=== PATIENT | female | born 1960 | race Caucasian/White ===

== ENCOUNTER → 2016-12-16 | Outpatient (CLI) | payer BC ==
[2016-12-16 14:48] LABS: Appearance,Urine Clear (Clear); Bacteria,Urine Rare /hpf; Bilirubin,Urine Negative (Negative); Glucose,Urine (UA) Negative (Negative); Ketones,Urine Negative (Negative); Leukocyte Esterase,Urine Negative (Negative); Nitrite,Urine Negative (Negative); PH, Urine 5.5 (5.0-8.0); Particle Count 385; Protein,Urine Negative (Negative); RBC,Urine 1 /hpf (0-5); Specific Gravity,Urine 1.009 (1.001-1.035); Squamous Epithelial Cell,Urine <1 /hpf (0-4); UA Billing (MACRO vs. MICRO) MICRO; Urobilinogen,Urine <2.0 mg/dL (<2.0); WBC,Urine <1 /hpf (0-5)
== END | disposition home or self-care (01) ==
LOC: LABPRL 13:26
PROVIDERS: ATTEND Obstetrics & Gynecology
DX: R35.0 Frequency of micturition (principal)
CPT/HCPCS: 81001; 87086

== ENCOUNTER → 2016-12-29 | Outpatient (CLI) | payer BC ==
--- NOTE | 2016-12-29 09:16 | US ---
EXAMINATION TYPE: US transvaginal DATE OF EXAM: 12/29/2016 8:44 AM COMPARISON: NONE CLINICAL HISTORY: Pelvic Pain, R10.2. irregular periods TECHNIQUE: Transvaginal (TV) Date of LMP: 12/20/2016 EXAM MEASUREMENTS: Uterus: 6.8 x 3.3 x 3.2cm Endometrial Stripe: 0.4m Right Ovary: 1.1 x 1.0 x 1.2 cm Left Ovary: 1.5 x 1.0 x 1.3 cm TECHNOLOGIST IMPRESSION: large body habitus 1. Uterus: Anteverted nabothian cyst 0.5 x 0.3 x 0.7 cm, fibroid anterior 1.3 x 1.0 x 1.3 cm, hete rogenous 2. Endometrium: wnl 3. Right Ovary: cyst 0.5 x 0.5 x 0.5 cm 4. Left Ovary: wnl 5. Bilateral Adnexa: wnl 6. Posterior cul-de-sac: wnl Grayscale, color Doppler imaging performed. Color flow noted to the ovaries. IMPRESSION: Fibroid uterus. Exam somewhat limited
== END | disposition home or self-care (01) ==
LOC: RADUSWWP 08:19
PROVIDERS: ATTEND Obstetrics & Gynecology
DX: D25.9 Leiomyoma of uterus, unspecified (principal)
CPT/HCPCS: 76830

== ENCOUNTER → 2017-01-19 | Outpatient (CLI) | payer BC ==
--- NOTE | 2017-01-19 14:59 | CONS ---
DATE OF CONSULTATION: PCP is Dr. Ford. A 56-year-old female patient referred to me for evaluation of sleep apnea. Note that the patient has been suffering from increased fatigue and tiredness for which no explanation has been established. The patient feels tired and somewhat sleepy and her current Brush Creek score is 10. She is currently retired. She goes to bed around 10:00 p.m., wakes up at 6:00 a.m. in the morning. Sometimes after waking up, she will go and take another 2 hour nap. It takes a few minutes to fall asleep. While asleep she has been told to snore. She is not sure if she stops breathing. She is a single mother and she does not have a bed partner. She denies waking up, choking or gasping for air. No restlessness in the lower extremities. She has an overbite, yet no reported grinding of the teeth. No heartburn at night. No alcoholism. PAST MEDICAL HISTORY: Depression for more than 25 years and maintained on Effexor with excellent control. PAST SURGICAL HISTORY: None. ALLERGIES: PENICILLIN. Outpatient medication list includes: 1. Effexor-XR 75 mg p.o. daily. 2. Zyrtec-D [id number]. 3. Xanax. SOCIAL HISTORY: Nonsmoker. No history of alcohol. No history of IV drugs. 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 FAMILY HISTORY: Negative for sleep apnea. REVIEW OF SYSTEMS: Twelve-point review of systems was done. No recent weight gain or weight loss. No substance abuse. No alcoholism. No heartburn. No anxiety or panic attacks. BP is 114/75, pulse 71, respirations 16, temperature 97.7, saturation 99% on room air. Weight is 181. Height is 60-1/2 inches. Neck size 15. BMI is 35. Brush Creek score is 10. GENERAL APPEARANCE: Calm, comfortable. HEENT: Malalignment of the upper and lower jaw with Mallampati class II. No goiter or neck masses. LUNGS: Clear to auscultation. HEART: Heart sounds are regular rate and rhythm normal S1, S2. No S3. No S4. No murmurs. ABDOMEN: Soft, nontender. No organomegaly. EXTREMITIES: No edema. No cyanosis or clubbing. IMPRESSION: 1. Excessive fatigue and sleepiness, currently under investigation. Brush Creek score is 10. Rule out to an underlying obstructive sleep apnea. 2. Snoring. 3. Overweight/obesity with a body mass index of 35.1. 4. Depression, treated with Effexor. PLAN: 1. Encourage weight loss. 2. Sleep in a sidewise body position. 3. Proceed with a screening polysomnogram to see if there is any significant obstructive sleep apnea. 4. It was noted that the patient has overbite and an oral appliance may be a good option for this patient if mild to moderate degree of sleep apnea is demonstrated. Alternatively CPAP therapy can be used for severe cases. All these options were discussed with her. Will proceed with a screening polysomnogram and make further recommendations based on the results.
== END | disposition home or self-care (01) ==
LOC: SLEEP 10:18
PROVIDERS: ATTEND Internal Medicine Critical Care Medicine
DX: R06.83 Snoring (principal); E66.3 Overweight; E66.9 Obesity, unspecified; Z68.35 Body mass index [BMI] 35.0-35.9, adult; F32.9 Major depressive disorder, single episode, unspecified; Z79.899 Other long term (current) drug therapy; Z88.0 Allergy status to penicillin
CPT/HCPCS: 99211

== ENCOUNTER → 2017-04-12 | Outpatient (CLI) | payer BC ==
--- NOTE | 2017-04-12 16:35 | EST ---
DATE OF SERVICE: 04/12/2017 AGE: 56Y SEX: F HT: 62 WT: 181 lbs. Protocol Sylvester: Other: Stage: 2 Dur. of Exercise: 7:00 *Heart Rate Blood Pressure *Rest: 92 Rest: 117/71 * *Max. Achieved: 154 Maximum BP: 143/73 85% PMHR: 140 100% PMHR: 165 *METS: 8.5 INDICATIONS: MEDICATIONS: Exercised for a total period of 7 minutes. A peak heart rate of 143 was achieved. Maximum blood pressure of 141/62 mmHg was noted. Resting EKG shows normal sinus rhythm with normal [place] interval and QRS duration and normal ST-T waves. No ST segment depression suggestive of ischemia is noted. No complaint during the test. FINAL IMPRESSION: This exercise test is not suggestive of ischemia. Patient's exercise tolerance is normal. The patient did not complain of any anginal pain during the test.
== END | disposition home or self-care (01) ==
LOC: RADNMMAIN 11:29
PROVIDERS: ATTEND Family Medicine
DX: R94.31 Abnormal electrocardiogram [ECG] [EKG] (principal)
CPT/HCPCS: 93017

== ENCOUNTER → 2021-12-10 | Outpatient (CLI) | payer BC ==
[2021-12-10 18:57] LABS: T4, Free (Free Thyroxine) 1.07 ng/dL (0.800-1.800)
== END | disposition home or self-care (01) ==
LOC: LABWHC1 12:22
PROVIDERS: ATTEND Family Medicine
DX: M85.9 Disorder of bone density and structure, unspecified (principal); E66.09 Other obesity due to excess calories; E03.8 Other specified hypothyroidism
CPT/HCPCS: 36415; 82306; 83036; 84439; 84443

== ENCOUNTER → 2021-12-24 | Outpatient (CLI) | payer BC ==
--- NOTE | 2021-12-24 13:53 | CONS ---
CONSULTATION DATE OF SERVICE: 12/24/2021 61-year-old lady has [facility] for snoring and significant excessive daytime sleepiness. HISTORY OF PRESENT ILLNESS SLEEP-WAKE EVALUATION: The patient had a home sleep apnea test in 2017. At that time apnea-hypopnea index was 5.1, and she did not have any treatment. Positive history of symptoms of restless legs. SLEEP SCHEDULE: Presently, her sleep schedule from 11:30 pm until 6:30 a.m. on weekdays and from 0:50 am until 9 a.m. on weekends. FALLING ASLEEP: No problems with falling asleep, although she has TV set in bedroom. DURING SLEEP: She usually sleeps on the stomach position. She wakes up from sleep 2 times with one episode of nocturia. No history of hypnagogic hallucinations, sleep paralysis or cataplexy. DURING THE DAY/SLEEP WAKE EVALUATION: During the day she feels significant sleepiness. Lester Sleepiness Scale is in very high range of 15. She may take 2 naps during the day. She drinks up to 2 caffeinated beverages during the day. PAST MEDICAL HISTORY: Positive for depression, anxiety, arthritis, pre diabetes. PAST SURGICAL HISTORY: Cholecystectomy. MEDICATIONS: Prozac 30 mg once a day, levothyroxine 75 mcg once a day, Zyrtec 5 mg on p.r.n. basis and Xanax 25 mg on p.r.n. basis. SOCIAL HISTORY: Negative for smoking or using alcohol. FAMILY HISTORY: Hypertension, heart problems, stroke, snoring, sleep apnea. REVIEW OF SYSTEMS: Snoring, multiple awakenings from sleep, sleepiness during the day. PHYSICAL EXAMINATION: GENERAL: lady without distress. BP 110/74, HR 108, RR 16, height 5 feet and 1/3 inches, weight 177.8 pounds, body mass index 34.2, temperature 97.1, oxygen saturation at room air 98%. Oropharynx: Big uvula. Mallampati around 2. NECK is 16 inches in circumference. Neck: Supple, no JVD. Thyroid is not palpable. LUNGS: Clear to percussion and to auscultation. Good air exchange. No wheezing or rhonchi. HEART: S1, S2 regular. No murmurs, gallops, or rubs. ABDOMEN: Obese. Soft and nontender. Bowel sounds are present. No organomegaly appreciated. EXTREMITIES: No clubbing or cyanosis. INSPECTORS AND REGULATORY OFFICERS: Awake, alert, and oriented X3. Cranial nerves 2 to 7 intact. There is no fasciculation or atrophy. noted. No focal deficits observed. IMPRESSION: 1. Snoring, awakenings from sleep. Big neck, 16 inches in circumference, significant excessive daytime sleepiness, obstructive sleep apnea-hypopnea syndrome. 2. Significant excessive daytime sleepiness. Lester Sleepiness Scale is 15. Differential diagnosis should include hypersomnia. 3. Obesity, BMI 34.2. 4. History of restless leg symptoms. 5. Hypothyroidism. 6. History of Herb's thyroiditis. 7. Depression. 8. Anxiety. 9. History of neck arthritis. 10.Pre diabetes. 11.Status post cholecystectomy. PLAN: 1. Home sleep apnea test for evaluation of patient breathing during sleep. 2. If sleep study will be negative for obstructive sleep apnea-hypopnea syndrome, polysomnogram with following multiple sleep latency test. 3. Preferable position during sleep on the side. 4. No driving if patient feels any sleepiness. 5. I will see patient for follow up visit to explain results of testing and following plan. Thank you very much for allowing me to participate in management of your patient. Sincerely, Michele Austin MD, PhD, FAASM Diplomat of [place] [employer] Sleep Medicine Board of [place] [employer] Manager of [facility] [place] MMODL / FREEDOMN: [id number] /
== END ==
LOC: SLEEP 11:55
PROVIDERS: ATTEND Internal Medicine
DX: G47.33 Obstructive sleep apnea (adult) (pediatric) (principal); E66.9 Obesity, unspecified; G25.81 Restless legs syndrome; E03.9 Hypothyroidism, unspecified; F32.A Depression, unspecified; R73.03 Prediabetes; F41.9 Anxiety disorder, unspecified; Z87.39 Personal history of other diseases of the musculoskeletal system and connective tissue; Z90.49 Acquired absence of other specified parts of digestive tract; Z86.39 Personal history of other endocrine, nutritional and metabolic disease; Z68.34 Body mass index [BMI] 34.0-34.9, adult; Z91.041 Radiographic dye allergy status; Z88.0 Allergy status to penicillin
CPT/HCPCS: 99211

== ENCOUNTER → 2022-04-23 | Outpatient (CLI) | payer BC ==
--- NOTE | 2022-04-23 10:33 | XR ---
EXAMINATION TYPE: XR calcaneus 2V LT DATE OF EXAM: 04/23/2022 COMPARISON: None HISTORY: Foot pain TECHNIQUE: 2 view left calcaneus FINDINGS: No acute fracture or dislocation is evident. Plantar calcaneal heel spur is present. Soft t issues appear normal. Follow up exams can be performed 7-10 days from acute trauma for continued pain. IMPRESSION: 1. Tiny plantar calcaneal heel spur.
== END | disposition home or self-care (01) ==
LOC: RADXRMAIN 09:51
PROVIDERS: ATTEND Family Medicine
DX: M77.32 Calcaneal spur, left foot (principal)

== ENCOUNTER → 2022-11-27 | Outpatient (CLI) | payer BC ==
--- NOTE | 2022-11-30 08:36 | MM ---
Reason for Exam: Screening (asymptomatic). Last mammogram was performed 1 year(s) and 5 month(s) ago. Patient History: Menarche at age 14. First Full-Term at age 31. Late child-bearing (after 30). Postmenopausal. Risk Values: Phyllis 5 year model risk: 2.0%. NCI Lifetime model risk: 9.7%. Prior Study Comparison: 12/30/2006 Screening Mammogram, [facility]. 04/19/2008 Bilateral Screening Mammogram, [facility] 12/23/2009 Bilateral Screening Mammogram, [facility]. Tissue Density: There are scattered fibroglandular densities. Findings: Analyzed By CAD. There is no suspicious group of microcalcifications or new suspicious mass in either breast. Stable chronic nodularity within the right breast. Overall Assessment: Benign, BI-RAD 2 Management: Screening Mammogram of both breasts in 1 year. A clinical breast exam by your physician is recommended on an annual basis and results should be correlated with mammographic findings. Electronically signed and approved by: Aram Fonseca D.O.
== END | disposition home or self-care (01) ==
LOC: RADMAMWWP 09:46
PROVIDERS: ATTEND Obstetrics & Gynecology
DX: Z12.31 Encounter for screening mammogram for malignant neoplasm of breast (principal); Z78.0 Asymptomatic menopausal state
CPT/HCPCS: 77063; 77067

== ENCOUNTER → 2023-12-06 | Outpatient (CLI) | payer BC ==
--- NOTE | 2023-12-07 08:43 | MM ---
Reason for Exam: Screening (asymptomatic). Last mammogram was performed 1 year(s) and 1 month(s) ago. Patient History: Menarche at age 14. First Full-Term at age 31. Late child-bearing (after 30). Postmenopausal. Risk Values: Phyllis 5 year model risk: 2.1%. NCI Lifetime model risk: 9.4%. Prior Study Comparison: 04/04/2020 Bilateral MG 3D screening mammo w/cad, [facility]. 06/27/2021 Bilateral MG 3D screening mammo w/cad, [facility]. 11/27/2022 Bilateral MG 3D screening mammo w/cad, [facility]. Tissue Density: There are scattered fibroglandular densities. Findings: Analyzed By CAD. There is no suspicious group of microcalcifications or new suspicious mass in either breast. Chronic nodularity right breast. Benign calcifications. Overall Assessment: Benign, BI-RAD 2 Management: Screening Mammogram of both breasts in 1 year. . Patient should continue monthly self-breast exams. A clinical breast exam by your physician is recommended on an annual basis. This exam should not preclude additional follow-up of suspicious palpable abnormalities. Note on Phyllis scores and lifetime risk: 1. A Phyllis score greater than 3% is considered moderate risk. If this is the case, consider specialist referral to assess eligibility for a risk reducing agent. 2. If overall lifetime risk for the development of breast cancer is 20% or higher, the patient may qualify for future screening with alternating mammogram and breast MRI. Electronically signed and approved by: Zion Crarero M.D. Radiologis
--- NOTE | 2023-12-07 12:20 | BD ---
EXAMINATION TYPE: Axial Bone Density DATE OF EXAM: 12/06/2023 CLINICAL HISTORY: 63 years old Female. ICD-10 CODE: M85.88 OT DISRD OF BONE DENSITY Height: 60" Weight: 169.8 FRAX RISK QUESTIONS: Alcohol (3 or more units per day): No Family History (Parent hip fracture): No Glucocorticoids (More than 3mos): No (Ex: prednisone, prednisolone, methylprednisolone, dexamethasone, and hydrocortisone). History of Fracture in Adulthood: No Secondary Osteoporosis: 1. Type 1 Diabetes: No 2. Hyperthyroidism: No 3. Menopause before 45: No 4. Malnutrition: No 5. Chronic liver disease: No Rheumatoid Arthritis: No Current Tobacco Use: No RISK FACTORS HISTORY OF: Hip Fracture (Right/Left): No Spine Fracture: No History of Wrist Fracture: No Surgery to Spine/Hip(right/left)/Wrist (right/left): No MEDICATIONS: Thyroid Medications: Yes Which medication: Levothyroxine How Lon years Osteoporosis Medications: No EXAM MEASUREMENTS: Bone mineral densitometry was performed using the [employer] System. Bone mineral density as measured about the Lumbar spine is: ----- L1-L4(G/cm2): 0.844 T Score Values are as follows: ----- L1: -2.6 ----- L2: -3.5 ----- L3: -2.7 ----- L4: -2.6 ----- L1-L4: -2.8 Z Score Values are as follows: ----- L1: -1.6 ----- L2: -2.5 ----- L3: -1.7 ----- L4: -1.6 ----- L1-L4: -1.8 Baseline @[facility] Bone mineral density about the R hip (g/cm2): 0.812 Bone mineral density about the L hip (g/cm2): 0.767 T Score values are as follows: -----R Neck: -2.5 -----L Neck: -2.8 -----R Total: -1.6 -----L Total: -1.9 Z Score values are as follows: -----R Neck: -1.4 -----L Neck: -1.8 -----R Total: -0.8 -----L Total: -1.2 Baseline @[facility] FRAX%s: The graph provided illustrates a 13.6% chance for a major osteoporotic fx and a 3.3% chance f or the hips probability for fx in 10 years time. IMPRESSION: Osteoporosis (T Score less than -2.5). There is increased fracture risk and therapy is usually indicated based on age. Re-Screen 1-2 years. NOTE: T-SCORE=SD OF THE YOUNG ADULT MEAN.
== END | disposition home or self-care (01) ==
LOC: RADMAMWWP 09:51
PROVIDERS: ATTEND Obstetrics & Gynecology
DX: Z12.31 Encounter for screening mammogram for malignant neoplasm of breast (principal); M81.0 Age-related osteoporosis without current pathological fracture; M85.89 Other specified disorders of bone density and structure, multiple sites; Z78.0 Asymptomatic menopausal state
CPT/HCPCS: 77063; 77067; 77080

== ENCOUNTER 2024-11-24 08:46 | Day surgery (SDC) | payer BC ==
[2024-11-22 10:10] VITALS: BMI 31.1
[2024-11-24 09:18] VITALS: TEMP 97.3
[2024-11-24] MEDS: LACTATED RINGERS 1,000 ML IV SCH (09:26)
[2024-11-24] MEDS: IV FLUID CONTINUATION 1,000 ML IV ONE (09:28)
[2024-11-24] MEDS ORDERED: LIDOCAINE 1% INJ 10MG/ML (20 ML MDV) ONE (09:28)
[2024-11-24] MEDS ORDERED: PROPOFOL 10 MG/ML 20 ML VIAL IV ONE (09:28)
--- NOTE | 2024-11-24 09:48 | P.PCN ---
Date of Procedure: 11/24/24 Procedure(s) Performed: BRIEF HISTORY: Patient is a 64-year-old pleasant white female scheduled for an elective colonoscopy as a part of screening for colon cancer. PROCEDURE PERFORMED: Colonoscopy with snare polypectomy. PREOPERATIVE DIAGNOSIS: Screening for colon cancer. IV sedation per Anesthesia. PROCEDURE: After informed consent was obtained, the patient, was brought into the endoscopy unit. IV sedation was administered by Anesthesia under continuous monitoring. Digital rectal examination was normal. Initially the Olympus CF-160 flexible video colonoscope was then inserted in the rectum, gradually advanced into the cecum without any difficulty. Careful examination was performed as the scope was gradually being withdrawn. Ileocecal valve and the appendiceal orifice were visualized and appeared normal. Prep was excellent. Mucosa of the cecum, ascending colon, transverse colon, descending colon, appeared normal. The sigmoid colon there was a 5 mm polyp that was removed by cold snare polypectomy. Rest of the sigmoid colon, and rectum appeared normal. Retroflexion was performed in the rectum and no lesions were seen. The patient tolerated the procedure well. IMPRESSION: 5 mm sigmoid colon polyp status post cold snare polypectomy Rest of the colon appeared normal RECOMMENDATIONS: Findings of this examination were discussed with the patient as well as the family.. She was advised to follow-up with the biopsy results. If the biopsy reveals adenoma she can have repeat colonoscopy in 5 years.
[2024-11-24 10:10] VITALS: BP 102/66; PULSE 69; RESP 15
== END 2024-11-24 10:32 | disposition home or self-care (01) ==
LOC: ORWHC2ENDO 08:46
PROVIDERS: ATTEND Internal Medicine Gastroenterology
DX: Z12.11 Encounter for screening for malignant neoplasm of colon (principal); D12.5 Benign neoplasm of sigmoid colon
CPT/HCPCS: 45385; J2003; J2704; 88305

== ENCOUNTER 2025-04-30 15:19 | Emergency (ER) | payer BC ==
--- NOTE | 2025-04-30 15:38 | ED ---
Dizziness HPI - General Source: patient, RN notes reviewed Mode of arrival: ambulatory Limitations: no limitations <Lynn Crowley - Last Filed: 04/30/25 15:36> - General Source: patient, RN notes reviewed Limitations: no limitations <Moises Monreal - Last Filed: 04/30/25 21:56> - General Chief Complaint: Dizziness Stated Complaint: Weakness/Dizzy/Nausea Time Seen by Provider: 04/30/25 15:36 - History of Present Illness Initial Comments: Quick note: 64-year-old female presented the ER for evaluation of dizziness. Patient states throughout the day today she has been experiencing dizziness while walking, standing or with head motions. She states with sitting still she has no symptoms. She denies a history of vertigo or prior episodes. Denies headache, chest pain or shortness of breath. (Lynn Crowley) Patient is a 64-year-old female present to the emergency department with concerns with dizziness. Onset was around noon. Sudden onset. Patient has symptoms when she sits up or has head movement. Symptoms improve with resting. No history of similar symptoms previously. No speech problems or confusion. No extremity weakness. (Moises Monreal) - Related Data Home Medications Medication Instructions Recorded Confirmed ALPRAZolam [Xanax] 0.25 mg PO BID PRN 12/11/21 11/24/24 Albuterol Sulfate [Proair 1 puff INHALATION RT-Q6H PRN 12/11/21 11/24/24 Respiclick] Calcium Carbonate [Calcium] 400 mg PO DAILY 12/11/21 11/24/24 Cetirizine HCl/Pseudoephedrine 0.5 tab PO DAILY PRN 12/11/21 11/24/24 [Zyrtec-D Tablet] Cholecalciferol [Vitamin D3 (125 375 mcg PO DAILY 12/11/21 11/24/24 Mcg = 5000 Iu)] [place] 520 mg PO DAILY 12/11/21 11/24/24 FLUoxetine HCL [PROzac] 10 mg PO DAILY 12/11/21 11/24/24 FLUoxetine HCL [PROzac] 20 mg PO DAILY 12/11/21 11/24/24 L.acidoph,Paracasei, B.lactis 1 cap PO DAILY 12/11/21 11/24/24 [Probiotic] Levothyroxine Sodium [Synthroid] 88 mcg PO DAILY 12/11/21 11/24/24 Petros-3 Fatty Acids [Petros-3] 1,000 mg PO DAILY 12/11/21 11/24/24 Turmeric Root Extract [Turmeric] 500 mg PO DAILY 12/11/21 11/24/24 traZODone HCL [Desyrel] 25 mg PO HS 11/22/24 11/24/24 Allergies Allergy/AdvReac Type Severity Reaction Status Date / Time Iodinated Contrast Media Allergy Unknown Verified 04/30/25 15:28 Penicillins Allergy Unknown Verified 04/30/25 15:28 Review of Systems ROS Other: All systems not noted in ROS Statement are negative. <Lynn Crowley - Last Filed: 04/30/25 15:36> ROS Other: All systems not noted in ROS Statement are negative. Constitutional: Denies: fever Eyes: Denies: eye pain ENT: Denies: ear pain Respiratory: Denies: cough Cardiovascular: Denies: chest pain Endocrine: Denies: fatigue Gastrointestinal: Denies: abdominal pain Neurological: Reports: vertigo. Denies: headache <Moises Monreal - Last Filed: 04/30/25 21:56> ROS Statement: Those systems with pertinent positive or pertinent negative responses have been documented in the HPI. Past Medical History Past Medical History: Thyroid Disorder History of Any Multi-Drug Resistant Organisms: None Reported Past Surgical History: Cholecystectomy, Orthopedic Surgery Additional Past Surgical History / Comment(s): colonoscopy, right shoulder repair Past Anesthesia/Blood Transfusion Reactions: No Reported Reaction Additional Past Anesthesia/Blood Transfusion Reaction / Comment(s): no blood transfusion Past Psychological History: Anxiety, Depression Smoking Status: Never smoker <Lynn Crowley - Last Filed: 04/30/25 15:36> General Exam Limitations: no limitations <Lynn Crowley - Last Filed: 04/30/25 15:36> Limitations: no limitations General appearance: alert, in no apparent distress Head exam: Present: normocephalic Eye exam: Present: normal appearance, PERRL, EOMI. Absent: nystagmus ENT exam: Present: normal oropharynx Respiratory exam: Present: normal lung sounds bilaterally Cardiovascular Exam: Present: regular rate, normal rhythm GI/Abdominal exam: Present: soft. Absent: tenderness Extremities exam: Present: normal inspection. Absent: pedal edema, calf tenderness Neurological exam: Present: alert, oriented X3, CN II-XII intact. Absent: motor sensory deficit Expanded Neurological exam: Present: protecting the airway Speech: Present: fluid speech Cranial nerves: EOM's Intact: Normal, Facial Sensation: Normal Cerebellar function: Finger to Nose: Normal Sensory exam: Upper Extremity Light Touch: Normal, Lower Extremity Light Touch: Normal Motor strength exam: RUE: 5, LUE: 5, RLE: 5, LLE: 5 Eye Response: (4) open spontaneously Motor Response: (6) obeys commands Verbal Response: (5) oriented Psychiatric exam: Present: normal affect, normal mood Skin exam: Present: normal color <Moiess Monreal - Last Filed: 04/30/25 21:56> - General Exam Comments Initial Comments: Visual Physical Exam Vital signs reviewed General: Well-appearing, nontoxic, no acute distress. Head: Normocephalic, atraumatic Eyes: PERRLA, EOMI ENT: Airway patent Chest: Nonlabored breathing Skin: No visual rash, normal skin tone Neuro: Alert and oriented 3 Musculoskeletal: No gross abnormalities (Lynn Crowley) Course Vital Signs 04/30/25 04/30/25 15:25 21:01 Temperature 97.6 F Pulse Rate 72 72 Respiratory 16 18 Rate Blood Pressure 125/77 119/81 O2 Sat by Pulse 98 98 Oximetry Medical Decision Making <Lynn Crowley - Last Filed: 04/30/25 15:36> - Lab Data Result diagrams: 04/30/25 17:05 04/30/25 17:05 <Moises Monreal - Last Filed: 04/30/25 21:56> - Medical Decision Making I performed the quick note portion of this chart. Electronically signed by Lynn Crowley PA-C (Lynn Crowley) Was pt. sent in by a medical professional or institution (RASHI Atkins, EMERGENCY MEDICINE PHYSICIAN ASSISTANT, urgent care, hospital, or skilled nursing...) When possible be specific @ -No Did you speak to anyone other than the patient for history (EMS, parent, family, police, friend...)? What history was obtained from this source @ -No Did you review nursing and triage notes (agree or disagree)? Why? @ -I reviewed and agree with nursing and triage notes Were old charts reviewed (outside hosp., previous admission, EMS record, old EK G, old radiological studies, urgent care reports/EKG's, skilled nursing records)? Report findings @ -No old charts were reviewed Differential Diagnosis (chest pain, altered mental status, abdominal pain women, abdominal pain men, vaginal bleeding, weakness, fever, dyspnea, syncope, headache, dizziness, GI bleed, back pain, seizure, CVA, palpatations, mental health, musculoskeletal)? @ -Differential Dizziness: Benign paroxysmal positional Vertigo, Meniere's disease, otitis media, acoustic neuroma, vertebrobasilar insufficiency, cerebellar stroke, encephalitis, hypovolemic, arrhythmia, coronary artery syndrome, anemia, this is not meant to be an all-inclusive list EKG interpreted by me (3pts min.). @ -As above X-rays interpreted by me (1pt min.). @ -None done CT interpreted by me (1pt min.). @ -CT scan of the brain does not reveal acute abnormality U/S interpreted by me (1pt. min.). @ -None done What testing was considered but not performed or refused? (CT, X-rays, U/S, labs)? Why? @ -None What meds were considered but not given or refused? Why? @ -None Did you discuss the management of the patient with other professionals (professionals i.e. , PA, EMERGENCY MEDICINE PHYSICIAN ASSISTANT, lab, RT, psych nurse, social sciences professor, building and construction manager, teacher, operational intelligence officer, mattress spring encaser)? Give summary @ -No Was smoking cessation discussed for >3mins.? @ -No Was critical care preformed (if so, how long)? @ -No Were there social determinants of health that impacted care today? How? (Homelessness, low income, unemployed, alcoholism, drug addiction, transportation, low edu. Level, literacy, decrease access to med. care, half-way, rehab)? @ -No Was there de-escalation of care discussed even if they declined (Discuss DNR or withdrawal of care, Hospice)? DNR status @ -No What co-morbidities impacted this encounter? (DM, HTN, Smoking, COPD, CAD, Cancer, CVA, ARF, Chemo, Hep., AIDS, mental health diagnosis, sleep apnea, morbid obesity)? @ -None Was patient admitted / discharged? Hospital course, mention meds given and route, prescriptions, significant lab abnormalities, going to OR and other pertinent info. @ -Patient presents with dizziness. Symptoms are positional. Patient reevaluated and symptom-free. Patient states she has gotten up and ambulated without any difficulty. Patient updated on results and plan. Patient be discharged with follow-up primary care physician. Undiagnosed new problem with uncertain prognosis? @ -No Drug Therapy requiring intensive monitoring for toxicity (Heparin, Nitro, Insulin, Cardizem)? @ -No Were any procedures done? @ -No Diagnosis/symptom? @ -Dizziness Acute, or Chronic, or Acute on Chronic? @ -Acute Uncomplicated (without systemic symptoms) or Complicated (systemic symptoms)? @ -Default Side effects of treatment? @ -No Exacerbation, Progression, or Severe Exacerbation? @ -No Poses a threat to life or bodily function? How? (Chest pain, [place], [place], pneumonia, PE, COPD, DKA, ARF, appy, cholecystitis, CVA, Diverticulitis, Homicidal, Suicidal, threat to staff... and all critical care pts) @ -No (Moises Monreal) - Lab Data Lab Results 04/30/25 04/30/25 04/30/25 Range/Units 17:05 17:05 17:05 WBC 6.17 (4.50-10.00) 10*3/uL RBC 4.40 (4.10-5.20) 10*6/uL Hgb 13.1 (12.0-15.0) g/dL Hct 38.3 (37.2-46.3) % MCV 87.0 (80.0-97.0) fL MCH 29.8 (27.0-32.0) pg MCHC 34.2 (32.0-37.0) g/dL Plt Count 261 (140-440) 10*3/uL MPV 9.1 L (9.5-12.2) fL Immature Gran % (Auto) 0.2 % Neutrophils % 59.7 % Lymphocytes % 26.6 % Monocytes % 8.9 % Eosinophils % 3.6 % Basophils % 1.0 % Immature Gran # 0.01 (0.00-0.04) 10*3/uL Neutrophils # 3.69 (1.80-7.70) 10*3/uL Lymphocytes # 1.64 (0.90-5.00) 10*3/uL Monocytes # 0.55 (0.20-1.00) 10*3/uL Eosinophils # 0.22 (0.04-0.35) 10*3/uL Basophils # 0.06 (0.00-0.10) 10*3/uL PT 10.6 (10.0-12.5) sec INR 1.0 (<1.2) APTT 27.3 (22.0-30.0) sec Sodium 139 (137-145) mmol/L Potassium 4.5 (3.5-5.1) mmol/L Chloride 104 (98-107) mmol/L Carbon Dioxide 26 (22-30) mmol/L Anion Gap 9 mmol/L BUN 16 (7-17) mg/dL Creatinine 0.85 (0.52-1.04) mg/dL Est GFR (CKD-EPI)AfAm 85 (>60 ml/min/1.73 sqM) Est GFR (CKD-EPI)NonAf 73 (>60 ml/min/1.73 sqM) Glucose 113 H (74-99) mg/dL Calcium 9.8 (8.4-10.2) mg/dL Magnesium 2.1 (1.6-2.3) mg/dL Total Bilirubin 0.3 (0.2-1.3) mg/dL AST 24 (14-36) U/L ALT 18 (4-34) U/L Alkaline Phosphatase 76 (38-126) U/L Troponin I (0.000-0.034) ng/mL Total Protein 7.0 (6.3-8.2) g/dL Albumin 4.4 (3.5-5.0) g/dL 04/30/25 Range/Units 17:05 WBC (4.50-10.00) 10*3/uL RBC (4.10-5.20) 10*6/uL Hgb (12.0-15.0) g/dL Hct (37.2-46.3) % MCV (80.0-97.0) fL MCH (27.0-32.0) pg MCHC (32.0-37.0) g/dL Plt Count (140-440) 10*3/uL MPV (9.5-12.2) fL Immature Gran % (Auto) % Neutrophils % % Lymphocytes % % Monocytes % % Eosinophils % % Basophils % % Immature Gran # (0.00-0.04) 10*3/uL Neutrophils # (1.80-7.70) 10*3/uL Lymphocytes # (0.90-5.00) 10*3/uL Monocytes # (0.20-1.00) 10*3/uL Eosinophils # (0.04-0.35) 10*3/uL Basophils # (0.00-0.10) 10*3/uL PT (10.0-12.5) sec INR (<1.2) APTT (22.0-30.0) sec Sodium (137-145) mmol/L Potassium (3.5-5.1) mmol/L Chloride (98-107) mmol/L Carbon Dioxide (22-30) mmol/L Anion Gap mmol/L BUN (7-17) mg/dL Creatinine (0.52-1.04) mg/dL Est GFR (CKD-EPI)AfAm (>60 ml/min/1.73 sqM) Est GFR (CKD-EPI)NonAf (>60 ml/min/1.73 sqM) Glucose (74-99) mg/dL Calcium (8.4-10.2) mg/dL Magnesium (1.6-2.3) mg/dL Total Bilirubin (0.2-1.3) mg/dL AST (14-36) U/L ALT (4-34) U/L Alkaline Phosphatase (38-126) U/L Troponin I <0.012 (0.000-0.034) ng/mL Total Protein (6.3-8.2) g/dL Albumin (3.5-5.0) g/dL Disposition <Lynn Crowley - Last Filed: 04/30/25 15:36> Is patient prescribed a controlled substance at d/c from ED?: No Time of Disposition: 21:56 <Moises Monreal - Last Filed: 04/30/25 21:56> Clinical Impression: Dizziness Disposition: HOME SELF-CARE Condition: Stable Instructions (If sedation given, give patient instructions): Dizziness (ED) Additional Instructions: [id number] Antivert as needed. Please do follow-up with your primary care physician in the next couple of days for recheck. Return for dizziness, confusion, weakness, off balance, worsening or changing symptoms or any other concerns. Referrals: Jaden Ford DO [Primary Care Provider] - 1-2 days
[2025-04-30 17:27] LABS: Basophils # (A) 0.06 10*3/uL (0.00-0.10); Eosinophils # (A) 0.22 10*3/uL (0.04-0.35); Eosinophils % (A) 3.6 %; HCT 38.3 % (37.2-46.3); HGB 13.1 g/dL (12.0-15.0); Lymphocytes # (A) 1.64 10*3/uL (0.90-5.00); Lymphocytes % (A) 26.6 %; MCH 29.8 pg (27.0-32.0); MCHC 34.2 g/dL (32.0-37.0); Mean Platelet Volume 9.1 fL (9.5-12.2); Monocytes # (A) 0.55 10*3/uL (0.20-1.00); Monocytes % (A) 8.9 %; Neutrophils # (A) 3.69 10*3/uL (1.80-7.70); Neutrophils % (A) 59.7 %; Platelet Count 261 10*3/uL (140-440); RDW 13.1 % (11.5-14.5); WBC 6.17 10*3/uL (4.50-10.00)
[2025-04-30 17:41] LABS: ALT 18 U/L (4-34); AST 24 U/L (14-36); African American GFR (CKD) 85 (>60 ml/min/1.73 sqM); Albumin 4.4 g/dL (3.5-5.0); Alkaline Phosphatase 76 U/L (38-126); Anion Gap 9 mmol/L; Blood Urea Nitrogen 16 mg/dL (7-17); Calcium 9.8 mg/dL (8.4-10.2); Carbon Dioxide 26 mmol/L (22-30); Chloride 104 mmol/L (98-107); Glucose 113 mg/dL (74-99); Magnesium 2.1 mg/dL (1.6-2.3); Non-African American GFR(CKD) 73 (>60 ml/min/1.73 sqM); Potassium 4.5 mmol/L (3.5-5.1); Sodium 139 mmol/L (137-145); Total Bilirubin 0.3 mg/dL (0.2-1.3)
[2025-04-30 18:05] LABS: Partial Thromboplastin Time 27.3 sec (22.0-30.0); Prothrombin Time 10.6 sec (10.0-12.5)
[2025-04-30] MEDS: diphenhydrAMINE 50 MG/ML 1 ML VIAL IVP STA (19:46)
[2025-04-30] MEDS: FAMOTIDINE 20 MG/2 ML VIAL IV STA (19:46)
[2025-04-30] MEDS: METOCLOPRAMIDE 5 MG/ML 2 ML VIAL IVP STA (19:46)
[2025-04-30] MEDS: methylPREDNISolone SOD SUCCI 125 MG/2 ML VIAL IV STA (19:46)
[2025-04-30] MEDS: MECLIZINE 12.5 MG TAB PO STA (19:47)
--- NOTE | 2025-04-30 21:08 | CT ---
EXAMINATION TYPE: CT brain wo con CT DLP: 1641.1 COMBINED mGycm, Automated exposure control for dose reduction was used. DATE OF EXAM: 04/30/2025 8:54 PM COMPARISON: None. CLINICAL INDICATION:Female, 64 years old with history of dizziness, DIZZINESS TECHNIQUE: Brain: Axial CT images of the brain were obtained with coronal and sagittal reformats created and rev iewed. Contrast used: None. Oral contrast used: None. FINDINGS: Brain: Extra-axial spaces: No abnormal extra-axial fluid collections. Ventricular system: Within normal limits Cerebral parenchyma: No acute intraparenchymal hemorrhage or mass effect. The mata-white junction is well differentiated. Cerebellum: Unremarkable. Mass effect: No evidence of midline shift. Intracranial vasculature: Atherosclerotic calcifications of the intracranial vessels. Soft tissues: Normal. Calvarium/osseous structures: No depressed skull fracture. Paranasal sinuses and mastoid air cells: Mild scattered paranasal sinus disease. Visualized orbits: Orbital contents are intact. IMPRESSION: No acute intracranial process. [facility], , 04/30/2025 9:06 PM
--- NOTE | 2025-04-30 21:50 | CT ---
EXAMINATION TYPE: CT angio head neck CT DLP: 1641.1 COMBINED mGycm, Automated exposure control for dose reduction was used. DATE OF EXAM: 04/30/2025 9:24 PM COMPARISON: CT head from the same day. CLINICAL INDICATION:Female, 64 years old with history of dizziness; PHH, dizziness TECHNIQUE: Axially acquired helical CT angiogram of the head and neck was obtained with contrast. Axi al images are supplemented with 3D reconstructions and MIP images which were post-processed at an in dependent workstation. NASCET criteria used. Contrast used:65ml mL of Isovue 370 with IV Contrast, Oral contrast used: None. FINDINGS: CTA HEAD: Please see noncontrasted head CT from the same day for further details. The visualized portions of the internal carotid arteries, middle cerebral arteries, anterior cerebral arteries, and posterior cerebral arteries are patent. Right posterior circulation is present. The left posterior communicating artery is diminutive. The basilar and vertebral arteries are patent. CTA NECK: Right Carotid System: The common carotid artery and external carotid artery are patent. The carotid bifurcation demonstrate s no evidence of hemodynamically significant stenosis. The remaining portions of the internal carotid artery demonstrate normal size without significant narrowing. Left Carotid System: The common carotid artery and external carotid artery are patent. The carotid bifurcation demonstrate s no evidence of hemodynamically significant stenosis. The remaining portions of the internal carotid artery demonstrate normal size without significant narrowing. Vertebral arteries are patent without evidence hemodynamically significant stenosis. There is a three-vessel aortic arch. The origins of the great vessels are patent. No evidence of hemo dynamically significant stenosis. Upper thorax: There is grade 1 anterolisthesis of C2 on C3. Mild multilevel degenerative changes are noted in the v isualized spine. IMPRESSION: 1. No evidence of dissection of the cervical internal carotid arteries or vertebral arteries or any e vidence of significant stenosis at the carotid bifurcations. 2. No evidence of intracranial high-grade stenosis or intracranial aneurysm. [facility], , 04/30/2025 9:47 PM
[2025-04-30 22:15] VITALS: BP 123/71; PULSE 77; RESP 20; TEMP 98.7
== END 2025-04-30 22:15 | disposition home or self-care (01) ==
LOC: EC 15:19
DX: R42 Dizziness and giddiness (principal); Z88.0 Allergy status to penicillin; Z91.041 Radiographic dye allergy status
CPT/HCPCS: 36415; 93005; 80053; 83735; 84484; 85025; 85610; 85730; 70496; 70450; 70498; 99285; 96374; 96375; J1200; J2765; Q9967; J2919; J1308

== ENCOUNTER → 2025-05-28 | Outpatient (CLI) | payer BC ==
--- NOTE | 2025-05-28 12:00 | MM ---
Reason for Exam: Screening (asymptomatic). Last mammogram was performed 1 year(s) and 5 month(s) ago. Patient History: Menarche at age 14. First Full-Term at age 31. Late child-bearing (after 31). Postmenopausal. Sister had breast cancer, age 64. Risk Values: Phyllis 5 year model risk: 3.2%. NCI Lifetime model risk: 13.1%. Prior Study Comparison: 06/27/2021 Bilateral MG 3D screening mammo w/cad, [facility]. 11/27/2022 Bilateral MG 3D screening mammo w/cad, [facility] 12/06/2023 Bilateral MG 3D screening mammo w/cad, [facility]. Tissue Density: There are scattered areas of fibroglandular density. Findings: Analyzed By CAD. Unchanged bilateral asymmetric densities. There is no suspicious group of microcalcifications or new suspicious mass in either breast. Overall Assessment: Benign, BI-RAD 2 Management: Screening Mammogram of both breasts in 1 year. See note below in regards to the patient's increased 5 year Phyllis score. Patient should continue monthly self-breast exams. A clinical breast exam by your physician is recommended on an annual basis. This exam should not preclude additional follow-up of suspicious palpable abnormalities. Note on Phyllis scores and lifetime risk: 1. A Phyllis score greater than 3% is considered moderate risk. If this is the case, consider specialist referral to assess eligibility for a risk reducing agent. 2. If overall lifetime risk for the development of breast cancer is 20% or higher, the patient may qualify for future screening with alternating mammogram and breast MRI. [facility], , 05/28/2025 11:57 AM. Electronically signed and approved by: Karen Lucia M.D. Radiologist
== END | disposition home or self-care (01) ==
LOC: RADMAMWWP 09:05
PROVIDERS: ATTEND Family Medicine
DX: Z12.31 Encounter for screening mammogram for malignant neoplasm of breast (principal); R92.323 Mammographic fibroglandular density, bilateral breasts; Z78.0 Asymptomatic menopausal state; Z80.3 Family history of malignant neoplasm of breast
CPT/HCPCS: 77063; 77067